=== PATIENT | female | born 1945 | race Caucasian/White ===

== ENCOUNTER 2018-02-23 16:30 | Observation (INO) | payer MEDICARE, OTHER ==
[~2018-02-23] VITALS: Ht 157.5 cm; Wt 73.2 kg
--- NOTE | 2018-02-23 16:33 | NUR ---
TRIAGE: PATIENT BROUGHT IN BY EMS WITH COMPLAINT OF DIZZINESS. PATIENT SAID THAT SHE HAD BEEN AT [facility] EARLIER AND FELT DIZZY, BUT IT PASSED. BUT THEN WENT TO [facility] AND BECAME VERY DIZZY AND WEAK. WITNESSES TOLD EMS THAT PATIENT APPEARED TO BE DISORIENTED. PATIENT ANSWERS ALL QUESTIONS APPROPRIATLY. DENIES PAIN AT THIS TIME.
[2018-02-23 16:43] VITALS: BP 147/70
[2018-02-23] MEDS ORDERED: ZOFRAN IV STA (17:06)
[2018-02-23] MEDS ORDERED: ANTIVERT PO STA (17:06)
[2018-02-23] MEDS ORDERED: ZOFRAN ONE (17:13)
--- NOTE | 2018-02-23 17:21 | ER.PDOC ---
General Chief Complaint: Dizziness Stated Complaint: DIZZY Time seen by MD: 17:19 Source: patient Exam Limitations: no limitations History of Present Illness Initial Comments Dizziness, patient had Taco lockwood this afternoon and is vomiting. Occurred: just prior to arrival Severity: moderate Usually: walks w/o assistance Worsened By: nothing Prior symptoms/Treatment: Similar symptoms previous Allergies: Coded Allergies: Penicillins (Verified Allergy, Severe, Swelling, 02/23/18) erythromycin base (Verified Allergy, Severe, Swelling, 02/23/18) morphine (Verified Allergy, Severe, Swelling, 02/23/18) sulfamethoxazole (Verified Allergy, Severe, Swelling, 02/23/18) trimethoprim (Verified Allergy, Severe, Swelling, 02/23/18) Past Medical History Medical History: diabetes, hypertension, thyroid disease Surgical History: appendectomy, hysterectomy Social History Smoking: non-smoker Alcohol Use: none Drug Use: none Review of Systems Constitutional: no symptoms reported Ears: dizziness Throat: no symptoms reported Respiratory: no symptoms reported Cardiovascular: no symptoms reported Gastrointestinal: no symptoms reported Genitourinary: no symptoms reported All Other Systems: Reviewed and Negative Physical Exam General Appearance: alert, no distress EENT: nml eye inspection, PERRL, no nystagmus, nml ENT inspection, pharynx nml , TM's nml Neck: supple Respiratory: no resp distress, breath sounds nml CVS: reg rate & rhythm, heart sounds.nml Abdomen: non-tender, no organomegaly, no distention Skin: color nml, no rash, warm/dry Extremities: non-tender, nml ROM, no pedal edema Neuro/Psych: nml orientation, nml speech/cognition, nml mood/affect Cranial Nerves: nml as tested, no evidence of acute CVA Sensorimotor: nml motor, nml sensation Results/Orders Results/Orders Laboratory Tests Test 02/23/18 17:20 White Blood Count 9.2 10^3/uL (4.5-11.0) Red Blood Count 4.09 10^6/uL (4.00-5.20) Hemoglobin 11.7 g/dL (12.0-15.0) Hematocrit 35.8 % (36.0-46.0) Mean Corpuscular Volume 87.5 fL (78-100) Mean Corpuscular Hemoglobin 28.6 pg (26-34) Mean Corpuscular Hemoglobin Concent 32.7 g/dL (33-37) Red Cell Distribution Width 14.4 % (11.5-14.5) Platelet Count 275 10^3/uL (150-400) Mean Platelet Volume 9.8 fL (7.8-11.0) Neutrophils (%) (Auto) 64.1 % (41.0-85.0) Lymphocytes (%) (Auto) 28.4 % (24.0-44.0) Monocytes (%) (Auto) 5.4 % (5.0-12.0) Neutrophils # (Auto) 5.9 10^3/uL (1.8-7.7) Lymphocytes # (Auto) 2.6 10^3/uL (1.0-4.8) Monocytes # (Auto) 0.5 10^3/uL (0.3-0.8) Absolute Immature Granulocyte (auto 0.01 10^3 u/L (0-2) Eosinophils % 1.7 % (0.0-5.0) Basophils % 0.3 % (0.0-0.2) Basophils # 0.0 10^3/uL (0.0-0.1) Eosinophil Count 0.2 10^3/uL (0.0-0.2) Prothrombin Time 10.9 SEC (9.8-11.9) Prothrombin Time INR (Non-Therap) 1.1 Activated Partial Thromboplast Time 24.1 SEC (24.67-30.72) Sodium Level 140 mmol/L (132-145) Potassium Level 3.9 mmol/L (3.6-5.2) Chloride Level 106.0 mmol/L (96-109) Carbon Dioxide Level 23.2 mmol/L (20.0-32) Anion Gap 14.7 Blood Urea Nitrogen 18 mg/dL (7-18) Creatinine 0.95 mg/dL (0.59-1.40) Estimated GFR () 70.4 (>/=60) BUN/Creatinine Ratio 18.0 Glucose Level 193 mg/dL (70-110) Calcium Level 8.8 mg/dL (8.4-10.5) Total Bilirubin 0.4 mg/dL (0.2-1.0) Aspartate Amino Transf (AST/SGOT) 30 U/L (0-35) Alanine Aminotransferase (ALT/SGPT) 38 U/L (12-78) Alkaline Phosphatase 71 U/L (50-136) Total Creatine Kinase 100 U/L (26-192) Creatine Kinase MB 1.0 ng/mL (0.5-3.6) Troponin I < 0.02 ng/mL (0.00-0.05) Total Protein 7.4 g/dL (6.4-8.2) Albumin 3.3 g/dL (3.4-5.0) Globulin 4.1 Percent Immature Gran (Cell Imm) 0.10 % (0.00-0.50) Administered Medications Medications (Trade) Dose Ordered Sig/Lakeshia Route PRN Reason Start Time Stop Time Status Last Admin Dose Admin Ondansetron HCl (Zofran) 4 mg STAT STAT IV 02/23/18 17:06 02/23/18 17:08 DC 02/23/18 17:27 Meclizine HCl (Antivert) 25 mg STAT STAT PO 02/23/18 17:06 02/23/18 17:08 DC 02/23/18 17:27 Progress Progress Patient went to the rest room and vomited profusely despite 8mg Zofran which she received so far. EKG/XRAY/CT/US EKG: NSR XRAY: chest (No active disease) Course Vitals & review Data Vital Sign - Last 24 Hours 02/23/18 02/23/18 02/23/18 16:33 16:33 16:43 Temp 97.8 97.8 97.8 Pulse 76 76 76 Resp 18 18 18 B/P (MAP) 147/70 (95) Pulse Ox 100 100 O2 Delivery Room Air Room Air Laboratory Tests Test 02/23/18 17:20 White Blood Count 9.2 10^3/uL Red Blood Count 4.09 10^6/uL Hemoglobin 11.7 g/dL Hematocrit 35.8 % Mean Corpuscular Volume 87.5 fL Mean Corpuscular Hemoglobin 28.6 pg Mean Corpuscular Hemoglobin Concent 32.7 g/dL Red Cell Distribution Width 14.4 % Platelet Count 275 10^3/uL Mean Platelet Volume 9.8 fL Neutrophils (%) (Auto) 64.1 % Lymphocytes (%) (Auto) 28.4 % Monocytes (%) (Auto) 5.4 % Neutrophils # (Auto) 5.9 10^3/uL Lymphocytes # (Auto) 2.6 10^3/uL Monocytes # (Auto) 0.5 10^3/uL Absolute Immature Granulocyte (auto 0.01 10^3 u/L Eosinophils % 1.7 % Basophils % 0.3 % Basophils # 0.0 10^3/uL Eosinophil Count 0.2 10^3/uL Prothrombin Time 10.9 SEC Prothrombin Time INR (Non-Therap) 1.1 Activated Partial Thromboplast Time 24.1 SEC Sodium Level 140 mmol/L Potassium Level 3.9 mmol/L Chloride Level 106.0 mmol/L Carbon Dioxide Level 23.2 mmol/L Anion Gap 14.7 Blood Urea Nitrogen 18 mg/dL Creatinine 0.95 mg/dL Estimated GFR () 70.4 BUN/Creatinine Ratio 18.0 Glucose Level 193 mg/dL Calcium Level 8.8 mg/dL Total Bilirubin 0.4 mg/dL Aspartate Amino Transf (AST/SGOT) 30 U/L Alanine Aminotransferase (ALT/SGPT) 38 U/L Alkaline Phosphatase 71 U/L Total Creatine Kinase 100 U/L Creatine Kinase MB 1.0 ng/mL Troponin I < 0.02 ng/mL Total Protein 7.4 g/dL Albumin 3.3 g/dL Globulin 4.1 Percent Immature Gran (Cell Imm) 0.10 % Departure Time of Disposition: 18:45 Disposition: 09 ADMITTED INPATIENT Impression: Primary Impression: Intractable nausea and vomiting Additional Impressions: Dehydration Dizziness and giddiness Condition: Stable Referrals: PCP,UNKNOWN (PCP) PRIMARY CARE PROVIDER Comments Admitted to Dr. Booth Duration or Time Spent with Pa: 60 mins Problem Qualifiers Primary Impression: Intractable nausea and vomiting Vomiting type: unspecified Qualified Codes: R11.2 - Nausea with vomiting, unspecified CHRISTIAN SCOTT MD Feb 23, 2018 17:21
[2018-02-23 17:24] LABS: BASOPHIL % 0.3 % (0.0-0.2); EOSINOPHIL # 0.2 10^3/uL (0.0-0.2); EOSINOPHIL % 1.7 % (0.0-5.0); HEMOGLOBIN 11.7 g/dL (12.0-15.0); LYMPHOCYTES # 2.6 10^3/uL (1.0-4.8); LYMPHOCYTES % 28.4 % (24.0-44.0); MEAN CELL HGB 28.6 pg (26-34); MEAN CELL HGB CONCENTRATION 32.7 g/dL (33-37); MEAN CORP VOLUME 87.5 fL (78-100); MEAN PLATELET VOLUME 9.8 fL (7.8-11.0); MONOCYTES # 0.5 10^3/uL (0.3-0.8); MONOCYTES % 5.4 % (5.0-12.0); NEUTROPHIL # 5.9 10^3/uL (1.8-7.7); NEUTROPHILS % 64.1 % (41.0-85.0); RED CELL DISTRIBUTION WIDTH 14.4 % (11.5-14.5); WHITE BLOOD CELL 9.2 10^3/uL (4.5-11.0)
--- NOTE | 2018-02-23 17:30 | PCM.EKG ---
[facility] Test Date: 2018-02-23 Test Time: 17:33:20 Pat Name: JARRET SCHNEIDER Department: Patient ID: [facility]-[id number] Room: Gender: F Scoop Driver: LINDSEY : 1945 Requested By: CHRISTIAN SCOTT Order Number: [id number] Reading MD: Christian SCOTT Measurements Intervals [place] Rate: 69 P: 69 NV: 152 QRS: -6 QRSD: 78 T: 79 QT: 412 QTc: 441 Interpretive Statements Normal sinus rhythm Low voltage QRS Borderline ECG No previous ECG available for comparison Electronically Signed On 02-25-2018 12:32:45 CDT by Christian SCOTT Please click the below link to view image of tracing.
--- NOTE | 2018-02-23 17:32 | DIREP ---
PROCEDURE:CHEST 1 VIEW COMPARISON:None. INDICATIONS:Dizziness FINDINGS: LUNGS/PLEURA:No significant pulmonary parenchymal abnormalities. No effusions. VASCULATURE:Normal. Unremarkable pulmonary vasculature. CARDIAC:Normal. No cardiac silhouette abnormality or cardiomegaly. MEDIASTINUM:Normal. No visible mass or adenopathy. BONES:Normal. No fracture or visible bony lesion. OTHER:Negative. CONCLUSION:Normal examination. Dictated by: Haroon Alex MD on 02/23/2018 at 05:29 PM
[2018-02-23 17:45] VITALS: BP 154/87
[2018-02-23 17:53] LABS: ALKALINE PHOSPHATASE 71 U/L (50-136); ASPARTATE AMINO TRANSFERASE 30 U/L (0-35); CALCIUM 8.8 mg/dL (8.4-10.5); CARBON DIOXIDE 23.2 mmol/L (20.0-32); GLUCOSE 193 mg/dL (70-110)
[2018-02-23 18:05] LABS: ALANINE AMINOTRANSFERASE(ML) 38 U/L (12-78)
[2018-02-23] MEDS ORDERED: COMPAZINE IV STA (18:49)
[2018-02-23] MEDS ORDERED: NS 1000ML 1,000 ML IV STA (18:49)
[2018-02-23] MEDS ORDERED: COMPAZINE ONE (18:50)
[2018-02-23] MEDS ORDERED: NS 1000ML 1,000 ML ONE (18:50)
--- NOTE | 2018-02-23 18:50 | NUR ---
ADMIT REQUEST: ADMIT REQUEST PUT IN AND REQUESTED ROOM FROM [facility]. WAS INFORMED BY [facility] CHARGE THAT THERE WAS NO AVAILABLE BEDS AT THIS TIME. DISCUSSED WITH EDP AND WE WILL HOLD PATIENT IN ER AN ADMIT.
[2018-02-23 18:52] VITALS: BP 184/73
--- NOTE | 2018-02-23 19:36 | DIREP ---
PROCEDURE:CT HEAD OR BRAIN W/O CONTRAST COMPARISON:None. INDICATIONS:Dizziness TECHNIQUE:CT images were created without intravenous contrast. FINDINGS: VENTRICLES:The ventricles are normal in size and configuration. CEREBRUM:Normal cerebral morphology with appropriate emery white matter differentiation. CEREBELLUM:Negative. BRAINSTEM:Negative. BASAL CISTERNS:Negative. HEMORRHAGE:No MASS LESION:No ACUTE INFARCT:No SKULL:Normal. SINUSES:Normal. OTHER:None CONCLUSION:Normal examination. Dictated by: Haroon Alex MD on 02/23/2018 at 07:34 PM
[2018-02-23 19:41] VITALS: BP 164/84
--- NOTE | 2018-02-23 19:44 | NUR ---
ADMIT: ADMITTED UNDER SR. SHAHRAM MONTGOMERY. WILL HOLD PATIENT IN ER UNTIL AVAILABLE BED.
[2018-02-23 20:16] LABS: BILIRUBIN,URINE NEGATIVE (NEGATIVE); UROBILINOGEN,URINE NORMAL (NEGATIVE)
--- NOTE | 2018-02-23 20:18 | NUR ---
UA: UA OBTAINED AND SENT TO LAB.
[2018-02-23 20:34] LABS: APPEARANCE,URINE CLOUDY (CLEAR); UA COLOR YELLOW (YELLOW)
[2018-02-23 20:50] VITALS: BP 140/81
[2018-02-23] MEDS ORDERED: LEVO75TA6 PO (21:19)
[2018-02-23] MEDS ORDERED: NAPR250T6 PO (21:19)
[2018-02-23] MEDS ORDERED: METF10003 PO (21:19)
--- NOTE | 2018-02-23 21:20 | NUR ---
HOME MEDS: PATIENT ROUTINE MEDS PUT IN. PATIENT STATES SHE TAKES POTASSIUM AND MAGNESIUM OVER THE COUNTER DAILY BUT DOES NOT KNOW DOSAGE.
[2018-02-23] MEDS ORDERED: OMEP20TA62 PO (21:21)
--- NOTE | 2018-02-23 21:22 | HPH ---
ADMIT DATE: 02/23/2018 The patient is being placed under observation to Med/Surg. PRIMARY CARE PHYSICIAN: ____ ADMITTING DIAGNOSES: Food poisoning with intractable nausea and vomiting and dehydration. CHIEF COMPLAINT: "I ate a Taco [place] and started to throw up." HISTORY OF PRESENT ILLNESS: The patient is a 72-year-old female who ate some type of Taco [place] earlier today. Within 3 hours, she started to have intense nausea and nonbilious vomiting. She came into the ER with intractable vomiting. In fact, she has been in the bathroom and has vomited more than 5 times already. No diarrhea reported. No abdominal pains. No fever. No chills. No arthralgias. She states that before this she had been feeling just fine and she had been doing her regular activity. No chest pain. No shortness of breath. No night sweats. PAST MEDICAL HISTORY: Significant for type 2 diabetes mellitus and hypothyroidism. PAST SURGICAL HISTORY: She has had a total hysterectomy and an appendectomy. ALLERGIES: PENICILLIN. MEDICATIONS: She takes metformin and a thyroid replacement. SOCIAL HISTORY: She does not smoke. No illicit drugs, no alcohol reported. FAMILY HISTORY: Asked and noncontributory for this admission. PHYSICAL EXAMINATION: VITAL SIGNS: In the ER, she was afebrile. Vital signs were stable. My physical exam is as follows: HEENT: Oropharynx was dry. NECK: Supple. No JVD noted. HEART: S1, S2 audible. She is not tachycardic. No murmurs. LUNGS: Clear bilaterally. ABDOMEN: I touched all over her abdomen. She does not have any abdominal tenderness, no rebound, no guarding, no masses. EXTREMITIES: No pitting edema. She has some slight varicose veins noted, 2+ distal pulses are noted. SKIN: Warm and dry. LABORATORY DATA: In the ER, she had labs drawn. Chemistry panel showed glucose of 193, albumin 3.3, rest of labs were normal. EKG showed sinus rhythm. CBC had white count of 9200, hemoglobin 11.7 and platelet count of 275. Coags were normal. ASSESSMENT: We have this female with food poisoning and intractable nausea, vomiting and dehydration. She had gotten 1 liter of fluids in the ER. I will give her another liter and put her on some IV fluids and gut rest her overnight and provide nausea medicines in the meantime and follow her clinically overnight. Aster Booth MD DR: IRENA/shanna JOB# [id number]
--- NOTE | 2018-02-23 22:40 | NUR ---
Patient admitted to [facility] from ER via wheelchair. Received report from Sharmaine Brumfield RN
[2018-02-23] MEDS: ROCEPHIN 1,000 MG in NS 100ML 100 ML IV SCH (23:00)
[2018-02-23 23:03] VITALS: BP 138/77
[2018-02-24] MEDS ORDERED: NS 100ML 100 ML IV ONE (01:22)
[2018-02-24] MEDS ORDERED: ROCEPHIN ONE (01:22)
[2018-02-24] MEDS ORDERED: NS 250ML 250 ML IV ONE (01:23)
[2018-02-24] MEDS: ROCEPHIN 1,000 MG in NS 100ML 100 ML IV SCH (01:28)
--- NOTE | 2018-02-24 01:40 | NUR ---
Patient refused Rocephin. Patient stated " I am funny about antbiotics and I am funny about it with my own doctor, Its not just yall"
[2018-02-24 05:37] VITALS: BP 140/79
--- NOTE | 2018-02-24 06:30 | NUR ---
REPORT RECEIVED REPORT, ASSUMED CARE FOR PATIENT AT THIS TIME.
[2018-02-24] MEDS ORDERED: CIPR500T86 PO (08:16)
--- NOTE | 2018-02-24 08:24 | PRM.DC ---
Discharge Summary Date of Discharge: Feb 24, 2018 Reason for Visit: Nausea and vomiting History Present Illness: (1) Food poisoning Status: Resolved ICD Code: T62.91XA - Toxic effect of unspecified noxious substance eaten as food, accidental (unintentional), initial encounter SNOMED: 40221669 (2) UTI (urinary tract infection) Status: Acute ICD Code: N39.0 - Urinary tract infection, site not specified SNOMED: 45107982 Assessment & Plan: Oral Cipro twice daily for seven days Drink plenty of water (3) Dehydration Status: Resolved ICD Code: E86.0 - Dehydration SNOMED: 68286349 General: Alert, Oriented X3, Cooperative, No acute distress HEENT: PERRLA, EOMI Neck: Supple, No JVD Lungs: Clear to auscultation, Normal air movement Heart: Regular rate, Normal S1, Normal S2, No murmurs Abdomen: Normal bowel sounds, Soft, No tenderness Extremities: No clubbing, No cyanosis Skin: No breakdown Neuro: Normal speech, Strength at 5/5 X4 ext, Cranial nerves 3-12 NL Psych/Mental Status: Mood NL Results(Labs/Rad) Laboratory Tests Test 02/23/18 17:20 02/23/18 20:04 White Blood Count 9.2 10^3/uL Red Blood Count 4.09 10^6/uL Hemoglobin 11.7 g/dL Hematocrit 35.8 % Mean Corpuscular Volume 87.5 fL Mean Corpuscular Hemoglobin 28.6 pg Mean Corpuscular Hemoglobin Concent 32.7 g/dL Red Cell Distribution Width 14.4 % Platelet Count 275 10^3/uL Mean Platelet Volume 9.8 fL Neutrophils (%) (Auto) 64.1 % Lymphocytes (%) (Auto) 28.4 % Monocytes (%) (Auto) 5.4 % Neutrophils # (Auto) 5.9 10^3/uL Lymphocytes # (Auto) 2.6 10^3/uL Monocytes # (Auto) 0.5 10^3/uL Absolute Immature Granulocyte (auto 0.01 10^3 u/L Eosinophils % 1.7 % Basophils % 0.3 % Basophils # 0.0 10^3/uL Eosinophil Count 0.2 10^3/uL Prothrombin Time 10.9 SEC Prothrombin Time INR (Non-Therap) 1.1 Activated Partial Thromboplast Time 24.1 SEC Sodium Level 140 mmol/L Potassium Level 3.9 mmol/L Chloride Level 106.0 mmol/L Carbon Dioxide Level 23.2 mmol/L Anion Gap 14.7 Blood Urea Nitrogen 18 mg/dL Creatinine 0.95 mg/dL Estimated GFR () 70.4 BUN/Creatinine Ratio 18.0 Glucose Level 193 mg/dL Calcium Level 8.8 mg/dL Total Bilirubin 0.4 mg/dL Aspartate Amino Transf (AST/SGOT) 30 U/L Alanine Aminotransferase (ALT/SGPT) 38 U/L Alkaline Phosphatase 71 U/L Total Creatine Kinase 100 U/L Creatine Kinase MB 1.0 ng/mL Troponin I < 0.02 ng/mL Total Protein 7.4 g/dL Albumin 3.3 g/dL Globulin 4.1 Percent Immature Gran (Cell Imm) 0.10 % Urine Collection Type UNKNOWN Urine Color YELLOW Urine Appearance CLOUDY Urine Bilirubin NEGATIVE MG/DL Urine Ketones 15 mg/dL Urine Specific Gould 1.010 Urine pH 8 Urine Protein NEGATIVE Urine Urobilinogen NORMAL Urine Nitrate POSITIVE Urine Leukocyte Esterase 100/ul 1+ Urine Blood NEGATIVE Urine RBC 0-2 RBC/HPF Urine WBC 10-25 WBC/HPF Urine Squamous Epithelial Cells FEW #/HPF Urine Bacteria MODERATE Urine Glucose 50 Scheduled Ciprofloxacin Hcl (Cipro), 500 MG PO BID Levothyroxine Sodium (Levothyroxine Sodium), 1 TAB PO DAILY, (Reported) Metformin Hcl (Metformin Hcl), 1 TAB PO BID, (Reported) Omeprazole Magnesium (Prilosec Otc), 1 TAB PO DAILY, (Reported) Scheduled PRN Naproxen (Naproxen), 250 MG PO DAILY24 PRN for PAIN, (Reported) Sepsis Evaluation @ Discharge Vital Sign - Last 24 Hours 02/23/18 02/23/18 02/23/18 16:33 16:33 16:43 Temp 97.8 97.8 97.8 Pulse 76 76 76 Resp 18 18 18 B/P (MAP) 147/70 (95) Pulse Ox 100 100 O2 Delivery Room Air Room Air Laboratory Tests Test 02/23/18 17:20 White Blood Count 9.2 10^3/uL Red Blood Count 4.09 10^6/uL Hemoglobin 11.7 g/dL Hematocrit 35.8 % Mean Corpuscular Volume 87.5 fL Mean Corpuscular Hemoglobin 28.6 pg Mean Corpuscular Hemoglobin Concent 32.7 g/dL Red Cell Distribution Width 14.4 % Platelet Count 275 10^3/uL Mean Platelet Volume 9.8 fL Neutrophils (%) (Auto) 64.1 % Lymphocytes (%) (Auto) 28.4 % Monocytes (%) (Auto) 5.4 % Neutrophils # (Auto) 5.9 10^3/uL Lymphocytes # (Auto) 2.6 10^3/uL Monocytes # (Auto) 0.5 10^3/uL Absolute Immature Granulocyte (auto 0.01 10^3 u/L Eosinophils % 1.7 % Basophils % 0.3 % Basophils # 0.0 10^3/uL Eosinophil Count 0.2 10^3/uL Prothrombin Time 10.9 SEC Prothrombin Time INR (Non-Therap) 1.1 Activated Partial Thromboplast Time 24.1 SEC Sodium Level 140 mmol/L Potassium Level 3.9 mmol/L Chloride Level 106.0 mmol/L Carbon Dioxide Level 23.2 mmol/L Anion Gap 14.7 Blood Urea Nitrogen 18 mg/dL Creatinine 0.95 mg/dL Estimated GFR () 70.4 BUN/Creatinine Ratio 18.0 Glucose Level 193 mg/dL Calcium Level 8.8 mg/dL Total Bilirubin 0.4 mg/dL Aspartate Amino Transf (AST/SGOT) 30 U/L Alanine Aminotransferase (ALT/SGPT) 38 U/L Alkaline Phosphatase 71 U/L Total Creatine Kinase 100 U/L Creatine Kinase MB 1.0 ng/mL Troponin I < 0.02 ng/mL Total Protein 7.4 g/dL Albumin 3.3 g/dL Globulin 4.1 Percent Immature Gran (Cell Imm) 0.10 % Course Sepsis Screening Results: Posi: NEGATIVE Sepsis Qualifier/Stage: NO DEFINITE RISK Vitals & review Data Vital Sign - Last 24 Hours 02/23/18 02/23/18 02/23/18 16:33 16:33 16:43 Temp 97.8 97.8 97.8 Pulse 76 76 76 Resp 18 18 18 B/P (MAP) 147/70 (95) Pulse Ox 100 100 O2 Delivery Room Air Room Air Laboratory Tests Test 02/23/18 17:20 White Blood Count 9.2 10^3/uL Red Blood Count 4.09 10^6/uL Hemoglobin 11.7 g/dL Hematocrit 35.8 % Mean Corpuscular Volume 87.5 fL Mean Corpuscular Hemoglobin 28.6 pg Mean Corpuscular Hemoglobin Concent 32.7 g/dL Red Cell Distribution Width 14.4 % Platelet Count 275 10^3/uL Mean Platelet Volume 9.8 fL Neutrophils (%) (Auto) 64.1 % Lymphocytes (%) (Auto) 28.4 % Monocytes (%) (Auto) 5.4 % Neutrophils # (Auto) 5.9 10^3/uL Lymphocytes # (Auto) 2.6 10^3/uL Monocytes # (Auto) 0.5 10^3/uL Absolute Immature Granulocyte (auto 0.01 10^3 u/L Eosinophils % 1.7 % Basophils % 0.3 % Basophils # 0.0 10^3/uL Eosinophil Count 0.2 10^3/uL Prothrombin Time 10.9 SEC Prothrombin Time INR (Non-Therap) 1.1 Activated Partial Thromboplast Time 24.1 SEC Sodium Level 140 mmol/L Potassium Level 3.9 mmol/L Chloride Level 106.0 mmol/L Carbon Dioxide Level 23.2 mmol/L Anion Gap 14.7 Blood Urea Nitrogen 18 mg/dL Creatinine 0.95 mg/dL Estimated GFR () 70.4 BUN/Creatinine Ratio 18.0 Glucose Level 193 mg/dL Calcium Level 8.8 mg/dL Total Bilirubin 0.4 mg/dL Aspartate Amino Transf (AST/SGOT) 30 U/L Alanine Aminotransferase (ALT/SGPT) 38 U/L Alkaline Phosphatase 71 U/L Total Creatine Kinase 100 U/L Creatine Kinase MB 1.0 ng/mL Troponin I < 0.02 ng/mL Total Protein 7.4 g/dL Albumin 3.3 g/dL Globulin 4.1 Percent Immature Gran (Cell Imm) 0.10 % Plan Discharge Date: Feb 24, 2018 Dicharge DX: 1. Food posioning, 2. UTI, 3. Dehydration Discharge Disposition: Stable Plan Resume home medications plus oral antibiotic for seven days Diet and activity as tolerated Drink plenty of water Follow up with PCP 1-2 weeks Discharge plans discussed with patient, she is her own decision maker and does understand and concur with plans Time spent 25 minutes Problem Qualifiers (1) Food poisoning: Encounter type: initial encounter Injury intent: accidental or unintentional Qualified Codes: T62.91XA - Toxic effect of unspecified noxious substance eaten as food, accidental (unintentional), initial encounter (2) UTI (urinary tract infection): Urinary tract infection type: acute cystitis Hematuria presence: without hematuria Qualified Codes: N30.00 - Acute cystitis without hematuria ZULY QUINONES MD Feb 24, 2018 08:24
[2018-02-24 08:48] VITALS: BP 140/79
--- NOTE | 2018-02-24 08:49 | NUR ---
DISCHARGE PATIENT BEING DISCHARGED HOME IN STABLE CONDITION. PATIENT STATES THAT SHE LIVES HOME ALONE AND HAS PLENTY OF HELP WITH HER CARE. DENIES ADDITIONAL RESOURCES AT THIS TIME. RELINQUISHED CARE FOR PATIENT.
[2018-02-24] MEDS ORDERED: PROTONIX PO SCH (09:00)
[2018-02-24] MEDS ORDERED: SYNTHROID PO SCH (09:00)
[2018-02-24 09:12] VITALS: BP 133/72
[2018-02-25] MEDS ORDERED: SYNTHROID PO SCH (06:30)
== END 2018-02-24 10:30 | disposition home or self-care (01) ==
LOC: ER 16:30 → EDBD 16:30 → MS 18:48
PROVIDERS: ADMIT Pediatrics; ATTEND Internal Medicine
DX: T62.91XA Toxic effect of unspecified noxious substance eaten as food, accidental (unintentional), initial encounter (principal); E86.0 Dehydration; E11.9 Type 2 diabetes mellitus without complications; I10 Essential (primary) hypertension; E03.9 Hypothyroidism, unspecified; Z90.710 Acquired absence of both cervix and uterus; N39.0 Urinary tract infection, site not specified
CPT/HCPCS: 36415; 70450; 71045; 80053; 81000; 82550; 82553; 82948; 84484; 85025; 85610; 85730; 87077; 87086; 87186; 93005; 96365; 96372; 96375 ×2; 99285; G0378 ×16; J0696 ×2; J0780; J2405; J7030; J7050 ×3